=== PATIENT | male | born 1940 | race Caucasian/White ===

== ENCOUNTER 2017-07-23 15:46 | Emergency (ER) | payer OTHER ==
[~2017-07-23] VITALS: Wt 79.2 kg
[~2017-07-23 15:46] MED LIST: ALBU8.5H3 INH; ASPI-664 PO; GABA300C16 PO; IBUP-1542 PO; LISI10TA2 PO; LOPE2CAP PO; METF1000 PO; NAPR-685 PO; OMEP20CA16 PO; SIMV20TA2 PO; SITA100T8 PO
--- NOTE | 2017-07-23 17:09 | ERD ---
ER Documentation Chief Complaint Chief Complaint right lower extremity swelling HPI 77-year-old transgender female, better known as Manju, with history of type 2 diabetes mellitus presents to the emergency department complaining of right lower extremity pain, edema and warmth that is progressively getting worse during the last 4 days. The pain is described as sharp, constant, worsened by palpation, 6/10. No recent history of trauma, no history of skin injuries the patient denies fevers, chills, no shortness of breath, no palpitations, no dizziness. History provided by patient. No previous evaluation, no treatment attempted ROS SYSTEMIC symptoms: no fever, chills, no night sweats, no weight loss EYE symptoms: No blurred vision, no eye discharge OTOLARYNGEAL symptoms: No hearing loss. No ear pain, no sore throat CARDIOVASCULAR symptoms: No chest pain or discomfort, no palpitations. PULMONARY symptoms: No dyspnea, no cough, no wheezing. GASTROINTESTINAL symptoms: No abdominal pain, no nausea, no vomiting, no diarrhea MUSCULOSKELETAL symptoms: No arthralgias, no muscle aches. NEUROLOGY symptoms: No confusion, no syncope, no numbness or tingling. SKIN: No rashes Medications Home Meds Active Scripts Cephalexin* (Cephalexin*) 500 Mg Capsule, 500 MG PO Q8 for 7 Days, #21 CAP Prov:MELANIE MACDONALD MD 07/23/17 Trimethoprim-Sulfamethoxazole* (Bactrim*) 400-80 Mg Tab, 1 TAB PO BID for 10 Days, #20 TAB Prov:MELANIE MACDONALD MD 07/23/17 Loperamide Hcl* (Imodium*) 2 Mg Capsule, 2 MG PO .AFTER EA LOOSE BM Y for DIARRHEA, #30 TAB Prov:ALEJANDRINA GERARD MD 04/05/16 Ibuprofen* (Motrin*) 600 Mg Tab, 600 MG PO TID for PAIN, #30 TAB Prov:ALISON PERES MD 11/01/15 Albuterol Sulfate* (Proair HFA*) 8.5 Gm Hfa.aer.ad, 2 PUFF INH Q4 for WHEEZING, #1 INHALER Prov:ALISON PERES MD 11/01/15 Naproxen* (Naproxen*) 375 Mg Tablet, 375 MG PO BID Y for PAIN, #20 TAB Prov:MAISHA SMITH DO 05/24/15 Reported Medications Aspirin (Low Dose Aspirin) 81 Mg Tablet.dr, 81 MG PO DAILY, #30 TAB 11/01/15 Omeprazole* (Omeprazole*) 20 Mg Capsule.dr, 20 MG PO DAILY, #30 CAP 11/01/15 Metformin Hcl* (Metformin Hcl*) 1,000 Mg Tablet, 1000 MG PO BID WITH MEALS, #30 TAB 11/01/15 Gabapentin* (Gabapentin*) 300 Mg Capsule, 300 MG PO TID, CAP 05/24/15 Sitagliptin* (Januvia*) 100 Mg Tablet, 100 MG PO DAILY, TAB 05/24/15 Simvastatin (Simvastatin) 20 Mg Tablet, 20 MG PO HS, TAB 05/24/15 Lisinopril* (Lisinopril*) 10 Mg Tablet, 10 MG PO DAILY, TAB 05/24/15 Allergies Allergies: Coded Allergies: No Known Allergy (Unverified , 11/01/15) PMhx/Soc Anesthesia Reaction: No Hx Neurological Disorder: No Hx Respiratory Disorders: No Hx Cardiac Disorders: Yes (HTN) Hx Psychiatric Problems: Yes (DEPRESSION) Hx Miscellaneous Medical Probl: Yes (DM) Hx Alcohol Use: No Hx Substance Use: No Hx Tobacco Use: Yes (6/DAY) Smoking Status: Never smoker Physical Exam Vitals Vital Signs Date Time Temp Pulse Resp B/P Pulse Ox O2 Delivery O2 Flow Rate FiO2 07/23/17 15:51 97.8 107 20 124/71 96 Physical Exam Patient is in no acute distress, vital signs stable. Alert and fully oriented. EYES: PERRLA, EOMI, Sclera and conjunctiva appear normal. EARS: Canals clear, tympanic membranes WNL THROAT: Normal oropharynx. NECK: Supple, No lymphadenopathy. Full ROM without pain or tenderness. HEART: RRR, no rubs, murmurs, clicks or gallops. LUNGS: Clear to auscultation. ABDOMEN: Soft, non-tender without masses or hepatosplenomegaly. EXTREMITIES: Right lower extremity with erythema, warmth, and induration extending from her ankle approx. 10cm below the knee. No calf tenderness BACK: Full ROM, no deformity, normal back exam NEURO: Cranial nerves grossly intact, no motor or sensory deficit Procedures/MDM 77y/o female transgender patient with history of diabetes, presents to the ED c/ o 5 days with progressive erythema, warmth and tenderness of the right lower extremity. Vital signs stable, Physical exam revealed right lower extremity with erythema, edema, and tenderness, well localized.. Differential diagnosis include but not limited to: Cellulitis, abscess, lymphangitis. Low suspicion for DVT. Physical examination and clinical presentation consistent most likely with cellulitis. During the ED course the patient remained stable, no new complaints. Results and clinical impression discussed with with patient who agrees with management. The patient is stable to be treated outpatient and will be discharged home with a Rx for antibiotics and pain management Side effects of prescribed medications (headache, rash, nausea, vomiting, diarrhea) were reviewed. Side effects of prescribed opiates (drowsiness, habituation) were reviewed. Side effects of prescribed NSAID medication (GI distress, edema, bleeding, HTN) were reviewed. The patient was instructed to follow up with the primary care provider in the next 48h. If symptoms persist, worsen or new symptoms develop, then patient should return to the ED immediately. Instructions explained and given to patient in [place]ese with acknowledgment and demonstrated understanding. Disclaimer: Inadvertent spelling and grammatical errors are likely due to EHR/ dictation software use and do not reflect on the overall quality of patient care. Also, please note that the electronic time recorded on this note does not necessarily reflect the actual time of the patient encounter. Departure Diagnosis: Primary Impression: Cellulitis of leg without foot, right Condition: Stable MELANIE MACDONALD MD Jul 23, 2017 17:09
[2017-07-23] MEDS ORDERED: CEPH500C PO (17:10)
[2017-07-23] MEDS ORDERED: BACTRIM PO (17:10)
== END 2017-07-23 17:18 | disposition home or self-care (01) ==
LOC: FTE 15:46
DX: L03.115 Cellulitis of right lower limb (principal); I10 Essential (primary) hypertension; E11.9 Type 2 diabetes mellitus without complications; F17.210 Nicotine dependence, cigarettes, uncomplicated; Z79.82 Long term (current) use of aspirin; Z79.84 Long term (current) use of oral hypoglycemic drugs
CPT/HCPCS: 99284

== ENCOUNTER 2017-12-14 13:52 | Emergency (ER) | END 2017-12-14 16:05 | disposition home or self-care (01) ==

== ENCOUNTER 2018-01-12 10:22 | Emergency (ER) | END 2018-01-12 13:27 | disposition home or self-care (01) ==

== ENCOUNTER 2019-01-12 15:52 | Emergency (ER) | payer OTHER ==
[~2019-01-12] VITALS: Ht 165.1 cm; Wt 75.1 kg
[~2019-01-12 15:52] MED LIST changes: -ALBU8.5H3 INH; -ASPI-664 PO; +ASPI81TA52 PO; -LOPE2CAP PO; -METF1000 PO; +METF100010 PO; -NAPR-685 PO; +SITA100T11 PO; -SITA100T8 PO
[2019-01-12 16:36] VITALS: BP 143/82; PULSE 86; RESP 18; Ht 165.1 cm; Wt 75.1 kg
--- NOTE | 2019-01-12 20:11 | ERD ---
ER Documentation Chief Complaint Chief Complaint left foot injury 01/01/19 HPI 78-year-old female with past medical history of hypertension, diabetes, hyperlipidemia, CHF who presents with complaint of left foot and ankle pain. Patient states that she was coming off a bus and walking across the street to her home on January 01 and fell and thinks she sprained her left ankle/foot. She denies LOC or any other injuries. Pain localized to left foot and ankle. She is able to get up with assistance of a neighbor. She is typically ambulates in the home with the use of a cane and outdoors with the use of a walker. Has been taking naproxen for her pain with good effect. Has been able to place weight on her ankle but with pain limiting ambulation. She otherwise is without complaint at the time of examination. ROS All systems reviewed and are negative except as per history of present illness. Medications Home Meds Active Scripts Acetaminophen* (Tylophen*) 500 Mg Capsule, 1 CAP PO Q6H PRN for PAIN AND OR ELEVATED TEMP, #20 CAP Prov:CHRIS ROSA PA-C 01/12/19 Ibuprofen* (Motrin*) 600 Mg Tab, 600 MG PO TID for PAIN, #30 TAB Prov:ALISON PERES MD 11/01/15 Reported Medications Aspirin (Low Dose Aspirin) 81 Mg Tablet., 81 MG PO DAILY, #30 TAB 11/01/15 Omeprazole* (Omeprazole*) 20 Mg Capsule.dr, 20 MG PO DAILY, #30 CAP 11/01/15 Metformin Hcl* (Metformin Hcl*) 1,000 Mg Tablet, 1000 MG PO BID WITH MEALS, #30 TAB 11/01/15 Gabapentin* (Gabapentin*) 300 Mg Capsule, 300 MG PO TID, CAP 05/24/15 Sitagliptin* (Januvia*) 100 Mg Tablet, 100 MG PO DAILY, TAB 05/24/15 Simvastatin (Simvastatin) 20 Mg Tablet, 20 MG PO HS, TAB 05/24/15 Lisinopril* (Lisinopril*) 10 Mg Tablet, 10 MG PO DAILY, TAB 05/24/15 Allergies Allergies: Coded Allergies: No Known Allergy (Unverified , 11/01/15) PMhx/Soc Anesthesia Reaction: No Hx Neurological Disorder: No Hx Respiratory Disorders: No Hx Cardiac Disorders: Yes (HTN) Hx Psychiatric Problems: Yes (DEPRESSION) Hx Miscellaneous Medical Probl: Yes (DM) Hx Alcohol Use: No Hx Substance Use: No Hx Tobacco Use: No Smoking Status: Never smoker FmHx Family History: diabetes, coronary disease Physical Exam Vitals Physical Exam Const: No acute distress Head: Atraumatic Eyes: Normal Conjunctiva ENT: Normal External Ears, Nose and Mouth. Neck: Full range of motion. No meningismus. Resp: Clear to auscultation bilaterally Cardio: Regular rate and rhythm, no murmurs Abd: Soft, non tender, non distended. Normal bowel sounds Skin: No petechiae or rashes Back: No midline or flank tenderness Ext: Left saul with area of skin excoriation, left ankle with mild swelling and tenderness at lateral malleolus. Patient able to stand but with significant pain take about 2 steps. [place] throughout bilateral lower extremities. Good distal pulses. Neur: Awake and alert Psych: Normal Mood and Affect Procedures/MDM 78-year-old female presents with complaint of left ankle and foot pain status post fall on January 01. No reports of LOC or any other injuries. ED course/plan: X-ray of left ankle and foot without acute finding Will discharge with appropriate pain medications, PMD follow-up, strict return precautions DISPOSITION PLAN: We discussed follow up with the patient's primary care doctor within 24 to 48 hours. Patient counseled regarding my diagnostic impression and care plan. Prior to discharge all questions answered. Pt agrees with treatment plan and understands strict return precautions. Precautionary instructions provided including instructions to return to the ER if not improving or for any worsening or changing symptoms or concerns. Disclaimer: Inadvertent spelling and grammatical errors are likely due to EHR/ dictation software use and do not reflect on the overall quality of patient care. Also, please note that the electronic time recorded on this note does not necessarily reflect the actual time of the patient encounter. Departure Comments Patient evaluated with PA and agree with assessment and plan. CHRIS Galvez PA-C January 12, 2019 20:11 NOEL COOK DO January 20, 2019 10:10
[2019-01-12] MEDS ORDERED: ACET500C5 PO (20:57)
== END 2019-01-12 21:38 | disposition home or self-care (01) ==
LOC: FTE 15:52
DX: M79.672 Pain in left foot (principal); M25.572 Pain in left ankle and joints of left foot; E11.9 Type 2 diabetes mellitus without complications; I50.9 Heart failure, unspecified; I11.0 Hypertensive heart disease with heart failure; Z79.82 Long term (current) use of aspirin; Z79.84 Long term (current) use of oral hypoglycemic drugs
CPT/HCPCS: 73610